=== PATIENT | female | born 1940 | race African-American/Black ===

== ENCOUNTER 2018-11-02 06:42 | Day surgery (SDC) | payer MEDICARE ==
[2018-11-02] MEDS ORDERED: FENTAnyl 50 MCG/ML VIAL (08:23)
[2018-11-02] MEDS ORDERED: PROPOFOL 20 ML (08:23)
[2018-11-02] MEDS ORDERED: ONDANSETRON 4 MG INJ IV (08:30)
== END 2018-11-02 16:08 | disposition home or self-care (01) ==
LOC: GIL 06:42
DX: K20.8 Other esophagitis (principal); K22.2 Esophageal obstruction; K29.70 Gastritis, unspecified, without bleeding; I10 Essential (primary) hypertension; J44.9 Chronic obstructive pulmonary disease, unspecified
CPT/HCPCS: 43239; 88305; 88312